=== PATIENT | male | born 1965 | race Caucasian/White ===

== ENCOUNTER 2019-04-27 13:00 | Emergency (ER) | payer SELFPAY ==
[~2019-04-27] VITALS: Wt 58.1 kg
--- NOTE | ~2019-04-27 | EKG ---
[place], [place] ELECTROCARDIOGRAM REPORT NAME: CONSTANZA ADAMES UNIT #: [id number] ROOM: DOCTOR: RGEGIE DRAFT REPORT BIRTHDATE: [birth year] [facility] Test Date: 2019-04-27 Test Time: 13:26:55 Pat Name: CONSTANZA ADAMES Department: Room: Gender: Product Design Specialist: Reshma Valenzuela : 1965 Requested By: SHARYN SOTOMAYOR Order Number: [id number] Reading MD: Nikhil Jacobsen Measurements Intervals [place] Rate: 89 P: -6 [place]: 131 QRS: 61 QRSD: 93 T: 49 QT: 348 QTc: 424 Interpretive Statements Sinus rhythm Left ventricular hypertrophy Anterior Q waves, possibly due to LVH Electronically Signed On 04-29-2019 13:25:13 PDT by Nikhil Jacobsen CM:EKGRPT:ELECTROCARDIOGRAM REPORT [id number] SHARYN URBINA DRAFT REPORT SHARYN SOTOMAYOR DO
[~2019-04-27 13:00] MED LIST: HYDROCODONE BIT1 T11 PO
[2019-04-27 13:41] LABS: BASO # 0.1 10*3/uL (0.0-0.1); BASO % 0.7 % (0.0-1.0); EOS # 0.1 10*3/uL (0.0-0.4); EOS % 1.6 % (1.0-4.0); HEMATOCRIT 45.6 % (42.0-52.0); HEMOGLOBIN 15.9 g/dl (14.0-18.0); LYMPH # 1.5 10*3/uL (1.3-4.4); LYMPH % 16.7 % (27.0-41.0); MEAN CELL VOLUME 98.3 fl (80.0-94.0); MEAN CORPUSCULAR HGB 34.3 pg (27.0-31.0); MEAN CORPUSCULAR HGB CONC 34.9 g/dl (33.0-37.0); MONO # 0.8 10*3/uL (0.1-1.0); MONO % 9.1 % (3.0-9.0); NEUT # 6.4 10*3/uL (2.3-7.9); NEUT % 71.6 % (47.0-73.0); PLATELET COUNT AUTOMATED 216 10*3/uL (130-400); RED BLOOD COUNT 4.64 10*6/uL (4.50-5.90); RED CELL DISTRI WIDTH 12.9 % (0-14.5); WHITE BLOOD COUNT 8.9 10*3/uL (4.8-10.8)
[2019-04-27 13:51] LABS: ACT PARTIAL THROMBO TIME 26.2 SECONDS (20.0-32.1); INTERNATIONAL NORM RATIO 0.9 (2.0-3.5)
[2019-04-27 13:56] LABS: ALBUMIN 3.9 gm/dl (3.1-4.5); ALKALINE PHOSPHATASE 90 U/L (45-117); BUN 8 mg/dl (7-24); CHLORIDE 98 mmol/L (98-107); CREATININE 0.84 mg/dL (0.70-1.30); LIPASE 161 U/L (73-393); POTASSIUM 4.1 mmol/L (3.5-5.1); SGOT/AST 107 IU/L (3-35); SGPT/ALT 107 U/L (12-78); SODIUM 133 mmol/L (136-145); TOTAL PROTEIN 7.8 gm/dL (6.4-8.2)
[2019-04-27 13:57] LABS: TROPONIN I < 0.015 ng/ml (<0.045)
[2019-04-27] MEDS ORDERED: PERCOCET 5-3251 EACH PO (15:50)
[2019-04-27] MEDS ORDERED: Motrin,Rufen800 MG PO (15:50)
== END 2019-04-27 16:22 | disposition home or self-care (01) ==
LOC: ED 13:00
PROVIDERS: Emergency Medicine
DX: S22.32XA Fracture of one rib, left side, initial encounter for closed fracture (principal); S40.012A Contusion of left shoulder, initial encounter; R94.5 Abnormal results of liver function studies; V80.010A Animal-rider injured by fall from or being thrown from horse in noncollision accident, initial encounter; Y93.52 Activity, horseback riding; Y92.89 Other specified places as the place of occurrence of the external cause; Y99.8 Other external cause status

== ENCOUNTER 2019-09-27 03:11 | Emergency (ER) | payer MEDICAID ==
[~2019-09-27] VITALS: Ht 172.7 cm; Wt 61.2 kg
[~2019-09-27 03:11] MED LIST changes: +Motrin,Rufen800 MG PO; +PERCOCET 5-3251 EACH PO
[2019-09-27] MEDS ORDERED: Percocet 325 MG1 TAB PO (05:10)
[2019-09-27 08:22] LABS: BF LYMPHOCYTES 39 %; BF NEUTROPHILS 59 %
[2019-09-27 08:26] LABS: BODY FLUID WBC 5100 /uL
== END 2019-09-27 05:43 | disposition home or self-care (01) ==
LOC: ED 03:11
PROVIDERS: Emergency Medicine Emergency Medical Services
DX: S82.045A Nondisplaced comminuted fracture of left patella, initial encounter for closed fracture (principal); M25.462 Effusion, left knee; E78.00 Pure hypercholesterolemia, unspecified; Z79.899 Other long term (current) drug therapy; W55.12XA Struck by horse, initial encounter; Y93.89 Activity, other specified; Y92.71 Barn as the place of occurrence of the external cause; Y99.8 Other external cause status

== ENCOUNTER → 2019-10-28 | Outpatient (CLI) | payer MEDICAID ==
[~2019-10-28] MED LIST changes: +Percocet 325 MG1 TAB PO
== END | disposition home or self-care (01) ==
LOC: ORTHO 01:03
DX: S82.045D Nondisplaced comminuted fracture of left patella, subsequent encounter for closed fracture with routine healing (principal); X58.XXXD Exposure to other specified factors, subsequent encounter

== ENCOUNTER 2019-12-22 10:02 | Emergency (ER) | payer OTHER ==
[~2019-12-22] VITALS: Ht 172.7 cm; Wt 61.2 kg
== END 2019-12-22 12:24 | disposition home or self-care (01) ==
LOC: ED 10:02
DX: M25.462 Effusion, left knee (principal); E78.00 Pure hypercholesterolemia, unspecified; F17.200 Nicotine dependence, unspecified, uncomplicated; Z79.899 Other long term (current) drug therapy

== ENCOUNTER 2022-04-23 15:43 | Inpatient (IN) | payer MEDICAID ==
[~2022-04-23] VITALS: Ht 172.7 cm; Wt 56.5 kg
[2022-04-23 15:46] VITALS: BP 136/85
[2022-04-23 16:15] LABS: BASO # 0.1 10*3/uL (0.0-0.1); BASO % 0.9 % (0.0-1.0); EOS # 0.2 10*3/uL (0.0-0.4); EOS % 2.5 % (1.0-4.0); HEMATOCRIT 44.9 % (42.0-52.0); LYMPH # 2.6 10*3/uL (1.3-4.4); LYMPH % 28.8 % (27.0-41.0); MEAN CELL VOLUME 92.8 fl (80.0-94.0); MEAN CORPUSCULAR HGB CONC 34.5 g/dl (33.0-37.0); MEAN PLATELET VOLUME 9.1 fl (9.6-12.3); MONO # 0.7 10*3/uL (0.1-1.0); NEUT # 5.4 10*3/uL (2.3-7.9); NEUT % 59.2 % (47.0-73.0); PLATELET COUNT AUTOMATED 309 10*3/uL (130-400); RED BLOOD COUNT 4.84 10*6/uL (4.50-5.90); WHITE BLOOD COUNT 9.1 10*3/uL (4.8-10.8)
[2022-04-23 16:30] LABS: ALKALINE PHOSPHATASE 119 U/L (45-117); BUN 5 mg/dl (7-24); CHLORIDE 104 mmol/L (98-107); CPK 40 U/L (39-308); CREATININE 0.76 mg/dL (0.70-1.30); POTASSIUM 3.8 mmol/L (3.5-5.1); SGOT/AST 14 IU/L (3-35); SGPT/ALT 17 U/L (12-78); SODIUM 135 mmol/L (136-145); TOTAL PROTEIN 7.4 gm/dL (6.4-8.2)
[2022-04-23 16:58] LABS: CLARITY Clear (Clear); COLOR Yellow (Yellow)
[2022-04-23 16:59] LABS: URINE AMPHETAMINES < 1000 (1000ng/ml); URINE BARBITURATES < 200 (200ng/ml); URINE BENZODIAZEPINES < 200 (200ng/ml); URINE CANNABINOIDS (THC) > 50 (50ng/ml); URINE COCAINE < 300 (300ng/ml); URINE METHADONE < 300 (300ng/ml); URINE OPIATES < 300 (300ng/ml)
[2022-04-23 17:00] LABS: BACTERIA TRACE; BILIRUBIN Negative (Negative); BLOOD Negative (Negative); EPITHELIAL CELLS 0-2; GLUCOSE Negative (Negative); KETONE Negative (Negative); LEUKO ESTERASE Negative (Negative); MUCOUS TRACE; NITRITE Negative (Negative); RBC 0-2 rbc/hpf (0-2); SPECIFIC GRAVITY 1.005 (1.001-1.030); UROBILINOGEN 0.2 E.U./dl (0.0-1.0); WBC 0-2 wbc/hpf (0-5)
[2022-04-23 17:01] LABS: URINE PHENCYCLIDINE < 25 (25ng/ml)
[2022-04-23 17:30] VITALS: BP 158/90
[2022-04-23 20:00] VITALS: BP 121/95
[2022-04-24] VITALS: BP 151/94
[2022-04-24 06:18] LABS: BASO # 0.1 10*3/uL (0.0-0.1); BASO % 0.8 % (0.0-1.0); EOS # 0.3 10*3/uL (0.0-0.4); EOS % 4.4 % (1.0-4.0); HEMATOCRIT 43.9 % (42.0-52.0); LYMPH # 2.6 10*3/uL (1.3-4.4); LYMPH % 33.7 % (27.0-41.0); MEAN CELL VOLUME 94.6 fl (80.0-94.0); MEAN CORPUSCULAR HGB 32.3 pg (27.0-31.0); MEAN CORPUSCULAR HGB CONC 34.2 g/dl (33.0-37.0); MEAN PLATELET VOLUME 9.5 fl (9.6-12.3); MONO # 0.7 10*3/uL (0.1-1.0); MONO % 8.6 % (3.0-9.0); NEUT # 3.9 10*3/uL (2.3-7.9); PLATELET COUNT AUTOMATED 277 10*3/uL (130-400); RED BLOOD COUNT 4.64 10*6/uL (4.50-5.90); RED CELL DISTRI WIDTH 13.2 % (0-14.5); WHITE BLOOD COUNT 7.6 10*3/uL (4.8-10.8)
[2022-04-24 06:26] LABS: BUN 7 mg/dl (7-24); CHLORIDE 109 mmol/L (98-107); CREATININE 0.62 mg/dL (0.70-1.30); SODIUM 139 mmol/L (136-145)
[2022-04-24 08:00] VITALS: BP 140/86
[2022-04-24 12:00] VITALS: BP 147/82
[2022-04-24 16:00] VITALS: BP 104/81
[2022-04-24 20:00] VITALS: BP 136/90
[2022-04-25] VITALS: BP 112/78
[2022-04-25 08:00] VITALS: BP 118/81
[2022-04-25 12:00] VITALS: BP 140/88
== END 2022-04-25 14:09 | disposition left against medical advice (07) | DRG 770 ==
LOC: ED 15:43 → 4E 16:51 → EDHOLD 16:51 → 4E 17:13
PROVIDERS: Internal Medicine; Physician Assistant; ADMIT Internal Medicine; ATTEND Internal Medicine
DX: F10.230 Alcohol dependence with withdrawal, uncomplicated (principal); F11.23 Opioid dependence with withdrawal; E87.1 Hypo-osmolality and hyponatremia; R52 Pain, unspecified; Z53.29 Procedure and treatment not carried out because of patient's decision for other reasons; Z71.6 Tobacco abuse counseling; Z82.49 Family history of ischemic heart disease and other diseases of the circulatory system

== ENCOUNTER 2022-10-18 15:25 | Emergency (ER) | payer MEDICAID ==
[~2022-10-18] VITALS: Wt 68.0 kg
[2022-10-18] MEDS ORDERED: PERCOCET 5-3251 EACH PO (18:04)
== END 2022-10-18 18:55 | disposition home or self-care (01) ==
LOC: ED 15:25
DX: S82.832A Other fracture of upper and lower end of left fibula, initial encounter for closed fracture (principal); Z79.899 Other long term (current) drug therapy; Z98.890 Other specified postprocedural states; X50.9XXA Other and unspecified overexertion or strenuous movements or postures, initial encounter; Y93.89 Activity, other specified; Y92.89 Other specified places as the place of occurrence of the external cause; Y99.8 Other external cause status